=== PATIENT | female | born 1930 | race Caucasian/White ===

== ENCOUNTER 2016-11-10 20:20 | Inpatient (IN) | payer MEDICARE, MEDICAID ==
[~2016-11-10] VITALS: Ht 165.1 cm; Wt 86.2 kg
[~2016-11-10 20:20] MED LIST: ALBU8.5H2 INH; AMLO5TAB4 PO; ASPI-991 PO; AZIT250T PO; VIT1TABL83 PO; ZOLP5TAB2 PO
--- NOTE | 2016-11-10 20:40 | NUR ---
pt bib self c/o diarrhea with hemorrhoids and generalized body aches today. reports fever but afebrile now. resp even unlabored. skin warm nondiaphoretic. ambulatory with slow but steady gait. NAD noted. denies blood in stool. in er bed 12.
[2016-11-10 20:58] LABS: BASOPHILS % (AUTO) 0.2 % (0.0-2.0); EOSINOPHILS # (AUTO) 0.1 /CMM (0.0-0.7); EOSINOPHILS % (AUTO) 1.5 % (0.0-6.0); HEMATOCRIT 35 % (33-45); LYMPHOCYTES # (AUTO) 2.3 /CMM (0.8-4.8); LYMPHOCYTES % (AUTO) 24.5 % (20.0-44.0); MEAN CORPUSCULAR HEMOGLOBIN 20 PG (26.0-33.0); MEAN CORPUSCULAR HGB CONC 31 g/dl (31.0-36.0); MEAN CORPUSCULAR VOLUME 64 fL (82-100); MONOCYTES # (AUTO) 0.7 /CMM (0.1-1.30); NEUTROPHILS # (AUTO) 6.2 /CMM (1.8-8.9); NEUTROPHILS % (AUTO) 66.8 % (43.0-81.0); PLATELET COUNT (AUTO) 156 /CMM (150-450); RDW COEFFICIENT OF VARIATION 15.1 (11.5-15.0); RED BLOOD CELL COUNT(AUTO) 5.43 MIL/uL (4.0-5.2); WHITE BLOOD COUNT (AUTO) 9.3 K/uL (4.3-11.0)
--- NOTE | 2016-11-10 20:59 | NUR ---
PT REPORTS SHE WENT TO THE BATHROOM 5-10 MINUTES PRIOR TO TRIAGE AND HAS NO URGE TO PEE NOW. STATES "MAYBE LATER". NOTIFIED.
[2016-11-10 21:08] LABS: CALCIUM, SERUM 9.1 mg/dL (8.5-10.1); CREATININE 1.1 mg/dL (0.6-1.3); POTASSIUM 4.7 mmol/L (3.5-5.1)
[2016-11-10 21:14] LABS: ALBUMIN 3.7 g/dL (3.4-5.0); BILIRUBIN,DIRECT 0.1 mg/dL (0.0-0.2); BILIRUBIN,TOTAL 0.4 mg/dL (0.2-1.0)
[2016-11-10] MEDS ORDERED: IV NS 0.9% 1,000 ML BAG IV ONE (22:00)
[2016-11-10] MEDS ORDERED: PIPERACILLIN /TAZOBACTAM 3.375 G in IV D5W 50 ML IV ONE (22:00)
[2016-11-10] MEDS ORDERED: IV NS 0.9% 1,000 ML ONE (22:13)
[2016-11-10] MEDS ORDERED: PIPERACILLIN /TAZOBACTAM 3.375 G VIAL IV ONE (22:13)
[2016-11-10] MEDS ORDERED: IV SET PRIMARY 1 EA INFUS.SET MC ONE (22:13)
[2016-11-10] MEDS ORDERED: IV SET PRIMARY PUMP SET 1 EA INFUS.SET MC ONE (22:13)
--- NOTE | 2016-11-10 22:14 | NUR ---
report given to anila sharma for admission
--- NOTE | 2016-11-10 22:20 | NUR ---
pt ambulated to restroom with steady gait. provided urine sample.
--- NOTE | 2016-11-10 22:36 | NUR ---
ADMITTING CERTIFIED GREEN BUILDING ENGINEER AT BEDSIDE
[2016-11-10 22:47] LABS: APPEARANCE,URINE CLEAR (CLEAR); BILIRUBIN,URINE NEGATIVE (NEGATIVE); BLOOD, URINE NEGATIVE Ery/uL (NEGATIVE); COLOR,URINE YELLOW (YELLOW); KETONES,URINE NEGATIVE (NEGATIVE); LEUKOCYTE ESTERASE ,URINE NEGATIVE (NEGATIVE); NITRITE, URINE NEGATIVE (NEGATIVE); PROTEIN,URINE NEGATIVE (NEGATIVE); UGLUCOSE NEGATIVE (NEGATIVE); UROBILINOGEN,URINE 0.2 EU/dL (0.2)
[2016-11-10] MEDS ORDERED: METRONIDAZOLE 500MG/ NS 100ML 500 MG in PREMIX 1 EA IV SCH (23:00)
[2016-11-10] MEDS ORDERED: ONDANSETRON HCL/PF 4 MG/2 ML VIAL IVP PRN (23:00)
[2016-11-10] MEDS ORDERED: Z GUARD REMEDY 2 OZ OINT TP PRN (23:00)
[2016-11-10] MEDS ORDERED: MORPHINE SULFATE INJ 2 MG/ML DISP.SYRIN IV PRN (23:00)
[2016-11-10] MEDS ORDERED: ZOLPIDEM TARTRATE 5 MG TABLET PO PRN (23:00)
[2016-11-10] MEDS ORDERED: ACETAMINOPHEN 325 MG TABLET PO PRN (23:00)
[2016-11-10] MEDS ORDERED: CEFOTAXIME SODIUM 1 G in IV D5W 50 ML IV SCH (23:00)
--- NOTE | 2016-11-10 23:06 | NUR ---
PT TRANSPORTED TO [facility] IN STABLE CONDITION
--- NOTE | 2016-11-10 23:15 | NUR ---
RN OPEN NOTES RECEIVED PATIENT VIA GURNEY FROM ER. NO SIGNS OR SYMPTOMS OF DISTRESS OR DISCOMFORT. BREATHING EVEN AND UNLABORED. IV ACCESS IN LAC WITH NS INFUSING VIA GRAVITY, PATENT AND INTACT, NO SIGNS OF REDNESS OR INFILTRATION. PATIENT COMPLAIN OF ABD PAIN 5/10 BUT DENIES ANY PAIN MEDS AT THIS TIME. ORIENTED PATIENT TO UNIT AND ROOM. BED IN LOW LOCKED POSITION WITH SIDE RAILS X2. CALL LIGHT WITHIN REACH. WILL CONTINUE TO MONITOR.
[2016-11-10 23:20] VITALS: BP 144/80
[2016-11-10 23:56] LABS: IRON, SERUM 29 ug/dl (50-175); TOTAL IRON BINDING CAPACITY 324 ug/dl (250-450)
[2016-11-10] MEDS ORDERED: METRONIDAZOLE 500MG/ NS 100ML 100 ML IV ONE (23:59)
[2016-11-11] VITALS: BP 144/80
[2016-11-11] MEDS ORDERED: IV D5/0.45 NACL 1,000 ML IV ONE (00:37)
[2016-11-11] MEDS ORDERED: IV SET PRIMARY PUMP SET 1 EA INFUS.SET MC ONE (00:38)
[2016-11-11] MEDS ORDERED: SECONDARY IV SET 1 EA INFUS.SET MC ONE ×2 (00:39→02:07)
[2016-11-11] MEDS: IV D5/0.45 NACL 1,000 ML IV PRN ×2 (00:44→23:18)
[2016-11-11] MEDS ORDERED: CEFTRIAXONE 1 G VIAL ONE (01:32)
[2016-11-11] MEDS ORDERED: IV D5W 50 ML IV ONE (01:33)
[2016-11-11] MEDS: CEFTRIAXONE 1 G in IV D5W 50 ML IV SCH (02:31)
--- NOTE | 2016-11-11 07:11 | NUR ---
MS/RN OPENING NOTES RECEIVED PATIENT AWAKE IN BED IN NO ACUTE SIGNS OF DISTRESS. ALERT AND ORIENTED X4, DENIES ANY PAIN OR ANY DISCOMFORTS AT THIS TIME. ON ROOM AIR, NO SOB OBSERVED. IV ACCESS TO LEFT AC PATENT AND INTACT WITH IVF OF D5 1/2 NS INFUSING , NO SIGNS OF INFILTRATION NOTED. CALL LIGHT WITHIN EASY REACH. BED LOW AND LOCKED WITH FOR SAFETY. WILL CONTINUE TO MONITOR ACCORDINGLY.
[2016-11-11] MEDS ORDERED: METRONIDAZOLE 500MG/ NS 100ML 500 MG in PREMIX 1 EA IV SCH (07:21)
--- NOTE | 2016-11-11 07:26 | NUR ---
RN CLOSING NOTES PATIENT AWAKE SITING ON BED. A/O X4. NO SIGNS OR SYMPTOMS OF DISTRESS OR DISCOMFORT. BREATHING EVEN AND UNLABORED. IV ACCESS IN LAC WITH D5 1/2NS INFUSING, PATENT AND INTACT, NO SIGNS OF REDNESS OR INFILTRATION. PAIN IS TOLERABLE AT THIS TIME. ALL NEEDS MET. NO SIGNIFICANT CHANGES THROUGH THE NIGHT. BED IN LOW LOCKED POSITION WITH SIDE RAILS X2. CALL LIGHT WITHIN REACH. ENDORSED TO AM SHIFT FOR ERIK.
[2016-11-11] MEDS ORDERED: ALBUTEROL FS 2.5 MG/0.5 ML VIAL.NEB NEB PRN (07:35)
[2016-11-11 08:00] VITALS: BP 138/72
[2016-11-11] MEDS: ASPIRIN EC 81 MG TABLET.DR PO SCH (08:06)
[2016-11-11] MEDS: AMLODIPINE BESYLATE 5 MG TABLET PO SCH (08:06)
[2016-11-11] MEDS: METRONIDAZOLE 500MG/ NS 100ML 500 MG in PREMIX 1 EA IV SCH ×3 (09:11→21:10)
[2016-11-11 10:20] LABS: BASOPHILS % (AUTO) 0.1 % (0.0-2.0); EOSINOPHILS # (AUTO) 0.1 /CMM (0.0-0.7); EOSINOPHILS % (AUTO) 1.9 % (0.0-6.0); HEMATOCRIT 33 % (33-45); HEMOGLOBIN 10.4 g/dL (11.5-14.8); LYMPHOCYTES # (AUTO) 1.9 /CMM (0.8-4.8); LYMPHOCYTES % (AUTO) 25.1 % (20.0-44.0); MEAN CORPUSCULAR HEMOGLOBIN 20 PG (26.0-33.0); MEAN CORPUSCULAR HGB CONC 32 g/dl (31.0-36.0); MEAN CORPUSCULAR VOLUME 65 fL (82-100); MONOCYTES # (AUTO) 0.6 /CMM (0.1-1.30); MONOCYTES % (AUTO) 7.6 % (2.0-12.0); NEUTROPHILS # (AUTO) 4.8 /CMM (1.8-8.9); NEUTROPHILS % (AUTO) 65.3 % (43.0-81.0); PLATELET COUNT (AUTO) 157 /CMM (150-450); RDW COEFFICIENT OF VARIATION 15.7 (11.5-15.0); RED BLOOD CELL COUNT(AUTO) 5.11 MIL/uL (4.0-5.2); WHITE BLOOD COUNT (AUTO) 7.4 K/uL (4.3-11.0)
[2016-11-11 10:43] LABS: ANISOCYTOSIS 3+; BAND % (MANUAL) 2 % (0.0-5.0); EOSINOPHILS % (MANUAL) 1 % (0-4); LYMPHOCYTES % (MANUAL) 26 % (16-48); MONOCYTES % (MANUAL) 5 % (0-11.0); NEUTROPHILS % (MANUAL) 66 (42-76); PLATELET ESTIMATE DECREASED; THYROID STIMULATING HORMONE 5.234 uIU/mL (0.358-3.74)
[2016-11-11 10:44] LABS: ALBUMIN 3.3 g/dL (3.4-5.0); BILIRUBIN,TOTAL 0.5 mg/dL (0.2-1.0); CALCIUM, SERUM 8.4 mg/dL (8.5-10.1); CREATININE 0.9 mg/dL (0.6-1.3); HYPOCHROMASIA 2+; OVALOCYTES FEW; PHOSPHORUS 3.6 mg/dL (2.5-4.9); TEAR DROP CELLS OCC; TOTAL PROTEIN, SERUM 6.6 g/dL (6.4-8.2)
[2016-11-11] MEDS: POLYVINYL ALCOHOL 15 ML BOTTLE EACHEYE PRN (13:03)
--- NOTE | 2016-11-11 13:05 | NUR ---
RN NOTES REPORTED TO DR SHAIKH ALL ABNORMAL BLOOD RESULTS. HE SAID , HE WILL TAKE A LOOK. NO NEW ORDER AT THIS TIME.
[2016-11-11 16:00] VITALS: BP 123/76
--- NOTE | 2016-11-11 18:57 | NUR ---
MS RN CLOSING NOTES PATIENT IN BED NO ACUTE SIGNS OF DISTRESS. ALERT AND ORIENTED X 4, NO SIGNS OF DISTRESS AND NO C/O PAIN AT THIS TIME. ALL NEEDS AND CARE WELL PROVIDED. IV ACCESS INTACT AND PATENT WITH D5 1/2 NS INFUSING WELL, NO SIGNS OF INFILTRATION NOTED. ALL DUE MEDS GIVEN ORDERED. CALL LIGHT WITHIN REACH AND KEPT BED AND LOW. SAFETY MEASURES MAINTAINED. WILL ENDORSE TO POWER SYSTEMS ENGINEER RN FOR CONTINUITY OF CARE
--- NOTE | 2016-11-11 19:20 | NUR ---
MS/RN OPENING NOTES PT AWAKE, DAUGHTER AT BEDSIDE. ON ROOM AIR, NO SOB OR S/S OF DISTRESS NOTED. BREATHING EVEN AND UNLABORED. DENIES PAIN. IV TO LAC PATENT AND INTACT RUNNING IVF ORDERED. BED IN LOW/LOCKED POSITION WITH CALL LIGHT IN REACH. BED RAILS UPX2. ENCOURAGE PT NOT TO GET OUT OF BED WITHOUT ASSISTANCE. PT VERBALIZED UNDERSTANDING. WILL CONTINUE TO MONITOR
[2016-11-11 20:00] VITALS: BP 149/96
[2016-11-11 20:09] VITALS: BP 149/96
[2016-11-11 22:29] VITALS: BP 143/73
--- NOTE | 2016-11-11 23:09 | NUR ---
MS/RN NOTES PT INFORMED AT 2100 THAT I WILL BE RETURNING IN ABOUT AN HOUR TO ADMINISTER HER SCHEDULED SLEEPING PILL. PT VERBALIZED UNDERSTANDING. PULLED MEDICATION FROM [employer] AND ENTERED PT'S ROOM AT 2200 TO ADMINISTER BUT PT STATED SHE WANTED TO WAIT A WHILE TO SEE IF SHE NEEDED IT OR NOT. INFORMED HER THAT I WOULD COME BACK TO SEE IF SHE WOULD LIKE IT. PT STILL WANTS TO WAIT AND SEE IF SHE EVEN NEEDS TO TAKE THE AMBIEN. WILL HOLD ONTO MEDICATION FOR NOW AND RETURN TO MED BIN IF PT DECIDES SHE DOESNT WANT IT
[2016-11-11] MEDS: ZOLPIDEM TARTRATE 5 MG TABLET PO SCH (23:20)
--- NOTE | 2016-11-11 23:20 | NUR ---
MS/RN NOTES PT STATED THAT SHE WAS READY TO TAKE HER SCHEDULED AMBIEN AND ADMINISTERED. WILL MONITOR FOR EFFECTIVENESS.
[2016-11-12] MEDS: CEFTRIAXONE 1 G in IV D5W 50 ML IV SCH (02:02)
--- NOTE | 2016-11-12 02:30 | NUR ---
MS/RN NOTES IV TO LAC DISLODGED AND LEAKING. NEW IV STARTED TO LEFT HAND #22. IVF RESTARTED.
--- NOTE | 2016-11-12 04:19 | NUR ---
MS/RN NOTES PT SLEEPING, BREATHING EVEN AND UNLABORED. NO S/S OF DISTRESS NOTED. WILL CONTINUE TO MONITOR
[2016-11-12] MEDS: METRONIDAZOLE 500MG/ NS 100ML 500 MG in PREMIX 1 EA IV SCH ×3 (04:51→21:44)
--- NOTE | 2016-11-12 06:53 | NUR ---
MS/RN CLOSING NOTES PT AWAKE, A/OX4. ON ROOM AIR. NO SOB OR DISTRESS NOTED. BREATHING EVEN AND UNLABORED. DENIES PAIN. IV TO LEFT HAND PATENT AND INTACT RUNNING IVF ORDERED. NO S/S OF INFILTRATION NOTED. ASSISTED PT TO RESTROOM THROUGHOUT SHIFT. MADE PT COMFORTABLE THROUGHOUT SHIFT. NO CHANGES NOTED OVERNIGHT. ALL NEEDS MET AND ATTENDED TO AT THIS TIME. BED IN LOW/LOCKED POSITION WITH CALL LIGHT IN REACH. WILL ENDORSE TO AM SHIFT ERIK.
--- NOTE | 2016-11-12 07:31 | NUR ---
MS RN NOTES REPORT RECEIVED AT THE BEDSIDE. PATIENT IS SLEEPING. NO SOB OR DISTRESS NOTED AT THIS TIME. PATIENT DOES NOT APPEAR TO BE IN PAIN, NO FACIAL GRIMACE NOTED. BED IS IN THE LOWEST POSITION, CALL LIGHT WITHIN PATIENT REACH. WILL CONTINUE TO MONITOR.
[2016-11-12 08:00] VITALS: BP 134/69
[2016-11-12] MEDS: AMLODIPINE BESYLATE 5 MG TABLET PO SCH (09:18)
[2016-11-12] MEDS: ASPIRIN EC 81 MG TABLET.DR PO SCH (09:18)
[2016-11-12] MEDS: POLYVINYL ALCOHOL 15 ML BOTTLE EACHEYE PRN (09:19)
--- NOTE | 2016-11-12 09:30 | NUR ---
MS RN NOTES FOUND PATIENT IN ROOM JAMES SEARCHING THE BED LINENS. PATIENT STATES THAT HER CELL PHONE IS MISSING. SEARCHED THE LINENS WITH THE PATIENT, SEARCHED THE DIRTY LINENS AND TRASH, PATIENT'S BREAKFAST TRAY, AND CALLED THE PATIENT'S PHONE MULTIPLE TIMES. THE PHONE WAS NOT FOUND IN THE ROOM. PATIENT STATES THE LAST TIME SHE REMEMBERS USING THE PHONE WAS LAST NIGHT BEFORE BED. CHECKED THE BELONGINGS LIST, CELL PHONE IS NOT LISTED. THERE IS A CELL PHONE COVER AND A INJECTION MOLDING PROCESS TECHNICIAN PLUGGED IN AT PATIENT'S BEDSIDE. INFORMED EMBROIDERY PATTERNMAKER WHO CALLED [employer] TO SEE IF ANYTHING WAS FOUND FROM LAST NIGHT. EVS STATES NOTHING WAS FOUND AND THE NIGHT DIRTY LINENS ARE ALREADY SENT OUT. WHEN ASKED WHAT KIND OF PHONE THE PATIENT HAS, SHE REPLIES A "BOOST MOBILE PHONE."
[2016-11-12 16:00] VITALS: BP 130/67
--- NOTE | 2016-11-12 18:53 | NUR ---
MS RN CLOSING NOTE NO SIGNIFICANT CHANGES IN PATIENT CONDITION THROUGHOUT THE SHIFT. NO SOB OR DISTRESS NOTED AT THIS TIME. PATIENT DENIES PAIN. BED IN A LOW POSITION, CALL LIGHT WITHIN PATIENT REACH, WILL ENDORSE FOR ERKI. Addendum: 11/12/16 at 1854 by VANNESSA CHÁVEZ RN PATIENT CELL PHONE HAS STILL NOT BEEN FOUND. MADAY, INTERNATIONAL RECRUITER, WAS INFORMED OF MISSING PHONE.
--- NOTE | 2016-11-12 19:40 | NUR ---
MS/RN OPENING NOTES PT ASLEEP, EASILY AROUSABLE. BREATHING EVEN AND UNLABORED. ON ROOM AIR WITH NO DISTRESS NOTED. NO S/S OF PAIN. IV TO LEFT HAND PATENT AND INTACT, FLUSHES WELL. BED IN LOW/LOCKED POSITION, CALL LIGHT IN REACH. BED RAILS UPX2. WILL CONTINUE TO MONITOR
[2016-11-12 20:00] VITALS: BP 149/74
[2016-11-13] MEDS: ZOLPIDEM TARTRATE 5 MG TABLET PO SCH (00:31)
--- NOTE | 2016-11-13 00:42 | NUR ---
MS/RN NOTES PT DID NOT WANT TO TAKE THE SCHEDULED AMBIEN AT 2200. WANTED TO WAIT UNTIL LATER. PT SAID SHE WAS READY FOR THE SLEEPING PILL, AND ADMINISTERED. WILL MONITOR FOR EFFECTIVENESS
[2016-11-13] MEDS: CEFTRIAXONE 1 G in IV D5W 50 ML IV SCH (02:37)
[2016-11-13] MEDS: METRONIDAZOLE 500MG/ NS 100ML 500 MG in PREMIX 1 EA IV SCH (05:33)
--- NOTE | 2016-11-13 07:00 | NUR ---
MS/RN CLOSING NOTES PT AWAKE. ON ROOM AIR WITH NO DISTRESS NOTED. NO S/S OF PAIN. IV TO LEFT HAND PATENT AND INTACT, FLUSHES WELL. SLEPT WELL THROUGHOUT THE NIGHT. WARM BLANKETS PROVIDED, MADE PT COMFORTABLE THROUGHOUT THE SHIFT, ALL NEEDS MET AND ATTENDED TO. BED IN LOW/LOCKED POSITION, CALL LIGHT IN REACH. BED RAILS UPX2. NO CHANGES OVERNIGHT. WILL ENDORSE TO AM SHIFT ERIK.
--- NOTE | 2016-11-13 08:15 | NUR ---
MS RN OPENING NOTES RECEIVED PT FROM NIGHTSHIFT NURSE IN STABLE CONDITION. A/O X4. BREATHING EVEN AND UNLABORED. NO SOB OR SIGNS OF DISTRESS AT THIS TIME. IV TO LEFT HAND 22G PATENT AND INTACT. NO REDNESS OR INFILTRATION NOTED. BED IN LOW LOCKED POSITION, SIDE RAILS UP X2, WITH CALL LIGHT IN REACH. WILL CONTINUE TO MONITOR
[2016-11-13 09:07] VITALS: BP 141/67
[2016-11-13 09:25] VITALS: BP 141/67
[2016-11-13] MEDS: ASPIRIN EC 81 MG TABLET.DR PO SCH (09:25)
[2016-11-13] MEDS: AMLODIPINE BESYLATE 5 MG TABLET PO SCH (09:25)
[2016-11-13] MEDS: POLYVINYL ALCOHOL 15 ML BOTTLE EACHEYE PRN (09:39)
--- NOTE | 2016-11-13 15:05 | NUR ---
MS RN CLOSING NOTES PT LEFT UNIT IN STABLE CONDITION ACCOMPANIED BY HER DAUGHTER AND MANSI. SHE SAFELY LEFT THE HOSPITAL IN A PRIVATE CAR. ALL ORDERS AND PT NEEDS WERE CARRIED OUT THROUGHOUT SHIFT
== END 2016-11-13 15:00 | disposition home or self-care (01) | DRG 392 ==
LOC: ER 20:24 → MED 21:51
PROVIDERS: ADMIT Nurse Practitioner Acute Care; ATTEND Nurse Practitioner Acute Care
DX: K57.32 Diverticulitis of large intestine without perforation or abscess without bleeding (principal); E87.1 Hypo-osmolality and hyponatremia; D50.9 Iron deficiency anemia, unspecified; F32.9 Major depressive disorder, single episode, unspecified; I10 Essential (primary) hypertension; K21.9 Gastro-esophageal reflux disease without esophagitis; M06.9 Rheumatoid arthritis, unspecified; G89.29 Other chronic pain; M54.5 Low back pain; Z90.710 Acquired absence of both cervix and uterus; K62.89 Other specified diseases of anus and rectum; K64.9 Unspecified hemorrhoids
CPT/HCPCS: 36415; 80048-TC; 80053-TC; 80061-TC; 80076-TC; 81000-TC; 83540-TC; 83605-TC; 83690-TC; 83735-TC; 84100-TC; 84443-TC; 85025-TC; 87040-TC; 87081-TC; A4216; A4606; J0696; J0698; J2270; J2543; J3490; J7030; J7060; Z7610

== ENCOUNTER 2018-10-27 14:53 | Emergency (ER) | payer MEDICARE, MEDICAID ==
[~2018-10-27] VITALS: Ht 165.1 cm; Wt 83.0 kg
[~2018-10-27 14:53] MED LIST changes: -ALBU8.5H2 INH; +ALBU8.5H8 INH; +ASPI-1152 PO; -ASPI-991 PO; -AZIT250T PO
--- NOTE | 2018-10-27 15:03 | NUR ---
PT TO ED BED 04 C/O LOWER ABDOMINAL PAIN X 2 DAYS. DENIES N/V/D. WAS AT HER PRIMARY DOCTOR AND WAS ADVISED TO GO TO ED. HX OF DIVERTICULIS, SURGERY 5-6 YEARS AGO. AFEBRILE. VSS. AWAITING MD OLIVARES.
--- NOTE | 2018-10-27 15:17 | NUR ---
DR HUMPHREYS AT BEDSIDE FOR EVAL.
--- NOTE | 2018-10-27 15:28 | NUR ---
IV LINE STARTED BLOOD DRAWN AND SENT TO LAB.
[2018-10-27] MEDS ORDERED: IV NS 0.9% 500 ML BAG IV ONE (15:30)
[2018-10-27 15:31] LABS: BASOPHILS % (AUTO) 0.6 % (0.0-2.0); HEMATOCRIT 35 % (33-45); LYMPHOCYTES # (AUTO) 2.4 /CMM (0.8-4.8); LYMPHOCYTES % (AUTO) 27.7 % (20.0-44.0); MEAN CORPUSCULAR HGB CONC 32 g/dl (31.0-36.0); MEAN CORPUSCULAR VOLUME 64 fL (82-100); MONOCYTES # (AUTO) 0.5 /CMM (0.1-1.30); MONOCYTES % (AUTO) 6.3 % (2.0-12.0); NEUTROPHILS # (AUTO) 5.5 /CMM (1.8-8.9); NEUTROPHILS % (AUTO) 63.4 % (43.0-81.0); PLATELET COUNT (AUTO) 187 /CMM (150-450); RED BLOOD CELL COUNT(AUTO) 5.44 MIL/uL (4.0-5.2); WHITE BLOOD COUNT (AUTO) 8.6 K/uL (4.3-11.0)
[2018-10-27 15:39] LABS: CALCIUM, SERUM 9.2 mg/dL (8.5-10.1); CARBON DIOXIDE 27 mmol/L (21-32); CHLORIDE 103 mmol/L (98-107); GLUCOSE 129 mg/dL (74-106); POTASSIUM 4.2 mmol/L (3.5-5.1); SODIUM SERUM 139 mmol/L (136-145); UREA NITROGEN, BLOOD 16 mg/dL (7-18)
[2018-10-27 15:45] LABS: ALANINE AMINOTRANSFERASE 21 U/L (12-78); ALBUMIN 3.9 g/dL (3.4-5.0); ALKALINE PHOSPHATASE 76 U/L (46-116); ASPARTATE AMINOTRANSFERASE 17 U/L (15-37); BILIRUBIN,DIRECT 0.1 mg/dL (0.0-0.2); BILIRUBIN,TOTAL 0.4 mg/dL (0.2-1.0); LIPASE 116 U/L (73-393); TOTAL PROTEIN, SERUM 7.2 g/dL (6.4-8.2)
[2018-10-27 16:18] LABS: APPEARANCE,URINE Clear (CLEAR); BILIRUBIN,URINE Negative (NEGATIVE); BLOOD, URINE Negative Ery/uL (NEGATIVE); COLOR,URINE Yellow (YELLOW); KETONES,URINE Negative (NEGATIVE); LEUKOCYTE ESTERASE ,URINE Negative (NEGATIVE); NITRITE, URINE Negative (NEGATIVE); PH,URINE 5.5 (5.0-8.0); PROTEIN,URINE Negative (NEGATIVE); UGLUCOSE Negative (NEGATIVE); UROBILINOGEN,URINE 0.2 EU/dL (0.2)
[2018-10-27] MEDS ORDERED: PIPERACILLIN /TAZOBACTAM 3.375 G in IV D5W 50 ML IV ONE (16:30)
[2018-10-27 17:53] LABS: BAND % (MANUAL) 17 % (0.0-5.0); EOSINOPHILS % (MANUAL) 3 % (0-4); LYMPHOCYTES % (MANUAL) 25 % (16-48); MONOCYTES % (MANUAL) 8 % (0-11.0); NEUTROPHILS % (MANUAL) 47 (42-76)
[2018-10-27 18:51] VITALS: BP 135/81
--- NOTE | 2018-10-27 18:52 | NUR ---
Patient discharged to home in stable condition. Written and verbal after care instructions given. Patient verbalizes understanding of instruction.
== END 2018-10-27 18:52 | disposition home or self-care (01) ==
LOC: ER 14:57
DX: K57.92 Diverticulitis of intestine, part unspecified, without perforation or abscess without bleeding (principal); I10 Essential (primary) hypertension; M06.9 Rheumatoid arthritis, unspecified; Z90.710 Acquired absence of both cervix and uterus; Z90.89 Acquired absence of other organs; Z98.890 Other specified postprocedural states; Z60.2 Problems related to living alone; Z79.82 Long term (current) use of aspirin; Z79.899 Other long term (current) drug therapy
CPT/HCPCS: 36415; 71045; 74176; 80048; 80076; 81001; 83690; 85025; 96365; 99284; J2543; J7040; J7060; 81000-TC

== ENCOUNTER 2018-12-20 19:16 | Emergency (ER) | payer MEDICARE, MEDICAID ==
[~2018-12-20] VITALS: Ht 152.4 cm; Wt 82.6 kg
--- NOTE | 2018-12-20 19:32 | NUR ---
PT BIBSELF C/O LOWER ABDOMINAL PAIN X4 HR. +NAUSEA, -V/D, -DYSURIA, -FEVER, PT IS AAOX4, NOT IN RESPIRATORY DISTRESS, V/S STABLE, KEPT RESTED AND COMFORTABLE, WILL CONTINUE TO MONITOR.
--- NOTE | 2018-12-20 19:35 | NUR ---
SEEN AND EXAMINED BY .
--- NOTE | 2018-12-20 19:40 | NUR ---
URINAL GIVEN BUT UNABLE TO PROVIDE URINE SPECEIMEN THIS TIME.
--- NOTE | 2018-12-20 20:03 | NUR ---
URINE SPECIMEN COLLECTED AND SENT TO LAB.
--- NOTE | 2018-12-20 20:20 | NUR ---
IV LINE ESTABLISHED, LABS DRAWNED AND SENT TO LAB.
[2018-12-20] MEDS ORDERED: MORPHINE SULFATE INJ 2 MG/ML DISP.SYRIN ONE (20:27)
[2018-12-20] MEDS ORDERED: ONDANSETRON HCL/PF 4 MG/2 ML VIAL ONE (20:27)
[2018-12-20] MEDS ORDERED: ONDANSETRON HCL/PF 4 MG/2 ML VIAL IV ONE (20:30)
[2018-12-20] MEDS ORDERED: MORPHINE SULFATE INJ 2 MG/ML DISP.SYRIN IV ONE (20:30)
[2018-12-20 20:36] LABS: BASOPHILS % (AUTO) 0.5 % (0.0-2.0); EOSINOPHILS % (AUTO) 2.9 % (0.0-6.0); HEMATOCRIT 34 % (33-45); HEMOGLOBIN 10.8 g/dL (11.5-14.8); LYMPHOCYTES # (AUTO) 2.4 /CMM (0.8-4.8); LYMPHOCYTES % (AUTO) 37.4 % (20.0-44.0); MEAN CORPUSCULAR HGB CONC 32 g/dl (31.0-36.0); MEAN CORPUSCULAR VOLUME 64 fL (82-100); MONOCYTES # (AUTO) 0.4 /CMM (0.1-1.30); MONOCYTES % (AUTO) 6.6 % (2.0-12.0); NEUTROPHILS # (AUTO) 3.3 /CMM (1.8-8.9); NEUTROPHILS % (AUTO) 52.6 % (43.0-81.0); PLATELET COUNT (AUTO) 181 /CMM (150-450); RED BLOOD CELL COUNT(AUTO) 5.35 MIL/uL (4.0-5.2); WHITE BLOOD COUNT (AUTO) 6.4 K/uL (4.3-11.0)
[2018-12-20 20:44] LABS: CALCIUM, SERUM 9.1 mg/dL (8.5-10.1); CARBON DIOXIDE 24 mmol/L (21-32); CHLORIDE 103 mmol/L (98-107); GLUCOSE 101 mg/dL (74-106); POTASSIUM 4.4 mmol/L (3.5-5.1); SODIUM SERUM 138 mmol/L (136-145); UREA NITROGEN, BLOOD 18 mg/dL (7-18)
[2018-12-20 20:58] LABS: ALANINE AMINOTRANSFERASE 21 U/L (12-78); ALBUMIN 3.8 g/dL (3.4-5.0); ALKALINE PHOSPHATASE 67 U/L (46-116); ASPARTATE AMINOTRANSFERASE 16 U/L (15-37); BILIRUBIN,DIRECT 0.1 mg/dL (0.0-0.2); BILIRUBIN,TOTAL 0.4 mg/dL (0.2-1.0); LIPASE 139 U/L (73-393); TOTAL PROTEIN, SERUM 7.1 g/dL (6.4-8.2)
[2018-12-20 21:39] LABS: APPEARANCE,URINE Turbid (CLEAR); BILIRUBIN,URINE Negative (NEGATIVE); BLOOD, URINE Trace-intact Ery/uL (NEGATIVE); COLOR,URINE Yellow (YELLOW); KETONES,URINE Negative (NEGATIVE); LEUKOCYTE ESTERASE ,URINE Moderate (NEGATIVE); NITRITE, URINE Positive (NEGATIVE); PH,URINE 5.5 (5.0-8.0); PROTEIN,URINE Negative (NEGATIVE); UGLUCOSE Negative (NEGATIVE); UROBILINOGEN,URINE 0.2 EU/dL (0.2)
[2018-12-20 21:49] LABS: BACTERIA,URINE Many /HPF (None Seen); RBC,URINE 0-2 /HPF (0-2); SQUAMOUS EPITHELIAL CELL,UR Few /HPF (None Seen); WBC,URINE TOO NUMEROUS TO COUN /HPF (0-3)
[2018-12-20] MEDS ORDERED: CEFTRIAXONE 1 G in IV D5W 50 ML IV ONE (22:00)
[2018-12-20] MEDS ORDERED: CEFTRIAXONE 1GM BAG (ER ONLY) 50 ML IV ONE (22:02)
--- NOTE | 2018-12-20 22:34 | NUR ---
IV removed. Catheter intact and site benign. Pressure and 4x4 applied to site. No bleeding noted. Patient discharged to home in stable condition. Written and verbal after care instructions given. Patient verbalizes understanding of instruction.
[2018-12-20 22:35] VITALS: BP 138/76
== END 2018-12-20 22:37 | disposition home or self-care (01) ==
LOC: ER 19:20
DX: N39.0 Urinary tract infection, site not specified (principal); I10 Essential (primary) hypertension; Z90.49 Acquired absence of other specified parts of digestive tract; Z90.710 Acquired absence of both cervix and uterus; Z90.89 Acquired absence of other organs; Z60.2 Problems related to living alone; Z79.82 Long term (current) use of aspirin
CPT/HCPCS: 36415; 74176; 80048; 80076; 81001; 83690; 84484; 85025; 87086; 96365; 96375; 99284; J0696 ×2; J2270; J2405; J7060; 81000-TC; 87186-TC

== ENCOUNTER 2018-12-25 00:38 | Emergency (ER) | payer MEDICARE, MEDICAID ==
[~2018-12-25] VITALS: Ht 165.1 cm; Wt 82.6 kg
[2018-12-25 01:16] VITALS: BP 153/76
--- NOTE | 2018-12-25 01:44 | NUR ---
C/O "WAS SEEN HERE A FEW DAYS AGO, PRESCRIBED KEFLEX. HAVING ABD PAIN AND DIARRHEA" VSS AOX4. AMBULATORY. -SOB -ACUTE DISTRESS.
[2018-12-25 02:16] LABS: APPEARANCE,URINE Clear (CLEAR); BILIRUBIN,URINE Negative (NEGATIVE); BLOOD, URINE Negative Ery/uL (NEGATIVE); COLOR,URINE Yellow (YELLOW); KETONES,URINE Negative (NEGATIVE); LEUKOCYTE ESTERASE ,URINE Negative (NEGATIVE); NITRITE, URINE Negative (NEGATIVE); PH,URINE 5.5 (5.0-8.0); PROTEIN,URINE Negative (NEGATIVE); UGLUCOSE Negative (NEGATIVE); UROBILINOGEN,URINE 0.2 EU/dL (0.2)
[2018-12-25 02:17] LABS: CALCIUM, SERUM 9.2 mg/dL (8.5-10.1); CARBON DIOXIDE 26 mmol/L (21-32); CHLORIDE 97 mmol/L (98-107); CREATININE 0.9 mg/dL (0.6-1.3); GLUCOSE 100 mg/dL (74-106); POTASSIUM 4.1 mmol/L (3.5-5.1); SODIUM SERUM 132 mmol/L (136-145); UREA NITROGEN, BLOOD 15 mg/dL (7-18)
[2018-12-25 02:20] LABS: BASOPHILS % (AUTO) 0.4 % (0.0-2.0); EOSINOPHILS % (AUTO) 3.2 % (0.0-6.0); HEMATOCRIT 34 % (33-45); HEMOGLOBIN 10.7 g/dL (11.5-14.8); LYMPHOCYTES # (AUTO) 3.1 /CMM (0.8-4.8); LYMPHOCYTES % (AUTO) 43.1 % (20.0-44.0); MEAN CORPUSCULAR HGB CONC 32 g/dl (31.0-36.0); MEAN CORPUSCULAR VOLUME 63 fL (82-100); MONOCYTES # (AUTO) 0.4 /CMM (0.1-1.30); MONOCYTES % (AUTO) 6.2 % (2.0-12.0); NEUTROPHILS # (AUTO) 3.4 /CMM (1.8-8.9); NEUTROPHILS % (AUTO) 47.1 % (43.0-81.0); PLATELET COUNT (AUTO) 190 /CMM (150-450); RED BLOOD CELL COUNT(AUTO) 5.28 MIL/uL (4.0-5.2); WHITE BLOOD COUNT (AUTO) 7.2 K/uL (4.3-11.0)
[2018-12-25 02:22] LABS: ALANINE AMINOTRANSFERASE 23 U/L (12-78); ALBUMIN 3.9 g/dL (3.4-5.0); ALKALINE PHOSPHATASE 65 U/L (46-116); ASPARTATE AMINOTRANSFERASE 16 U/L (15-37); BILIRUBIN,DIRECT 0.1 mg/dL (0.0-0.2); BILIRUBIN,TOTAL 0.4 mg/dL (0.2-1.0); LIPASE 146 U/L (73-393); TOTAL PROTEIN, SERUM 7.6 g/dL (6.4-8.2)
== END 2018-12-25 03:54 | disposition home or self-care (01) ==
LOC: ER 00:48
DX: R10.30 Lower abdominal pain, unspecified (principal); I10 Essential (primary) hypertension; Z90.89 Acquired absence of other organs; Z90.710 Acquired absence of both cervix and uterus; Z98.890 Other specified postprocedural states; Z60.2 Problems related to living alone; Z79.82 Long term (current) use of aspirin
CPT/HCPCS: 36415; 80048-TC; 80076-TC; 81000-TC; 83690-TC; 85025-TC; 87086-TC

== ENCOUNTER 2019-07-20 11:53 | Emergency (ER) | payer MEDICARE, OTHER ==
[~2019-07-20] VITALS: Ht 160 cm; Wt 81.6 kg
--- NOTE | 2019-07-20 12:55 | NUR ---
SEEN AND EXAMINED BY
--- NOTE | 2019-07-20 13:00 | NUR ---
ER PHLEB AT BEDSIDE FOR BLOOD DRAW.
[2019-07-20 13:14] LABS: BASOPHILS % (AUTO) 0.3 % (0.0-2.0); EOSINOPHILS % (AUTO) 2.9 % (0.0-6.0); HEMATOCRIT 36 % (33-45); HEMOGLOBIN 11.2 g/dL (11.5-14.8); LYMPHOCYTES # (AUTO) 2.3 /CMM (0.8-4.8); LYMPHOCYTES % (AUTO) 41.6 % (20.0-44.0); MEAN CORPUSCULAR HGB CONC 31 g/dl (31.0-36.0); MEAN CORPUSCULAR VOLUME 63 fL (82-100); MONOCYTES # (AUTO) 0.4 /CMM (0.1-1.30); MONOCYTES % (AUTO) 7.2 % (2.0-12.0); NEUTROPHILS # (AUTO) 2.7 /CMM (1.8-8.9); PLATELET COUNT (AUTO) 162 /CMM (150-450); RED BLOOD CELL COUNT(AUTO) 5.67 MIL/uL (4.0-5.2); WHITE BLOOD COUNT (AUTO) 5.5 K/uL (4.3-11.0)
--- NOTE | 2019-07-20 13:16 | NUR ---
URINE SPECIMEN COLLECTED AND SENT TO LAB.
[2019-07-20 13:17] LABS: CALCIUM, SERUM 9.3 mg/dL (8.5-10.1); CARBON DIOXIDE 28 mmol/L (21-32); CHLORIDE 95 mmol/L (98-107); CREATININE 0.9 mg/dL (0.6-1.3); GLUCOSE 82 mg/dL (74-106); POTASSIUM 4.6 mmol/L (3.5-5.1); SODIUM SERUM 130 mmol/L (136-145); UREA NITROGEN, BLOOD 18 mg/dL (7-18)
[2019-07-20 13:23] LABS: APPEARANCE,URINE Clear (CLEAR); BILIRUBIN,URINE Negative (NEGATIVE); BLOOD, URINE Negative Ery/uL (NEGATIVE); COLOR,URINE Yellow (YELLOW); KETONES,URINE Negative (NEGATIVE); LEUKOCYTE ESTERASE ,URINE Small (NEGATIVE); NITRITE, URINE Negative (NEGATIVE); PROTEIN,URINE Negative (NEGATIVE); UGLUCOSE Negative (NEGATIVE); UROBILINOGEN,URINE 0.2 EU/dL (0.2)
[2019-07-20 13:24] LABS: ALANINE AMINOTRANSFERASE 23 U/L (12-78); ALBUMIN 3.9 g/dL (3.4-5.0); ALKALINE PHOSPHATASE 57 U/L (46-116); ASPARTATE AMINOTRANSFERASE 16 U/L (15-37); BILIRUBIN,DIRECT 0.1 mg/dL (0.0-0.2); BILIRUBIN,TOTAL 0.5 mg/dL (0.2-1.0); LIPASE 103 U/L (73-393); TOTAL PROTEIN, SERUM 7.3 g/dL (6.4-8.2)
[2019-07-20 13:30] LABS: BACTERIA,URINE Few /HPF (None Seen); SQUAMOUS EPITHELIAL CELL,UR Moderate /HPF (None Seen)
[2019-07-20] MEDS ORDERED: ACETAMINOPHEN ES 500 MG TABLET ONE (14:00)
[2019-07-20] MEDS ORDERED: DICYCLOMINE HCL 10 MG CAPSULE PO ONE ×2 (14:00)
[2019-07-20] MEDS ORDERED: ACETAMINOPHEN ES 500 MG TABLET PO ONE (14:00)
[2019-07-20] MEDS ORDERED: CT SWABBABLE VALVE TRANS SET 1 EA INFUS.SET MC ONE (14:25)
[2019-07-20] MEDS ORDERED: IOHEXOL-300 100 ML VIAL IV ONE (14:25)
[2019-07-20] MEDS ORDERED: IV NS 0.9% 250 ML IV ONE (14:26)
--- NOTE | 2019-07-20 14:39 | NUR ---
CAME BACK FROM CT
--- NOTE | 2019-07-20 15:00 | NUR ---
Patient is resting comfortably in bed with eyes closed. Easily aroused. VSS
--- NOTE | 2019-07-20 15:48 | NUR ---
DR MCCLURE AT BEDSIDE
[2019-07-20] MEDS ORDERED: KETOROLAC TROMETHAMINE 15 MG/ML VIAL ONE (15:52)
[2019-07-20] MEDS ORDERED: CEFTRIAXONE 1GM BAG (ER ONLY) 50 ML IV ONE (15:52)
[2019-07-20] MEDS ORDERED: KETOROLAC TROMETHAMINE INJ 30 MG/ML VIAL IV ONE (16:00)
[2019-07-20] MEDS ORDERED: CEFTRIAXONE 1GM BAG (ER ONLY) 1 GM/50 ML PIGGYBACK IV ONE (16:00)
[2019-07-20 16:21] VITALS: BP 147/86
--- NOTE | 2019-07-20 16:21 | NUR ---
IV removed. Catheter intact and site benign. Pressure and 4x4 applied to site. No bleeding noted.Patient discharged to home in stable condition. Written and verbal after care instructions given. Patient verbalizes understanding of instruction.
== END 2019-07-20 16:21 | disposition home or self-care (01) ==
LOC: ER 11:57
DX: N39.0 Urinary tract infection, site not specified (principal); I10 Essential (primary) hypertension; M06.9 Rheumatoid arthritis, unspecified; Z90.89 Acquired absence of other organs; Z90.710 Acquired absence of both cervix and uterus; Z98.890 Other specified postprocedural states; Z60.2 Problems related to living alone; Z79.899 Other long term (current) drug therapy; Z79.82 Long term (current) use of aspirin
CPT/HCPCS: 36415; 74177; 80048; 80076; 81001; 83605; 83690; 84484; 85025; 87086; 96365; 96375; 99284; J0696; J1885; J7040; J7050; Q9967; 81000-TC

== ENCOUNTER 2020-03-19 11:11 | Inpatient (IN) | payer MEDICARE, OTHER ==
[~2020-03-19] VITALS: Ht 160 cm; Wt 89.8 kg
[~2020-03-19 11:11] MED LIST changes: -ASPI-1152 PO; +ASPI-1420 PO
[2020-03-19] MEDS ORDERED: IV NS 0.9% 500 ML BAG IV ONE (11:30)
[2020-03-19] MEDS ORDERED: OXYB-58 PO (11:37)
[2020-03-19] MEDS ORDERED: NEBI5TAB8 PO (11:37)
[2020-03-19] MEDS ORDERED: PROP10TA68 PO (11:37)
[2020-03-19] MEDS ORDERED: PANT40TA49 PO (11:37)
[2020-03-19] MEDS ORDERED: DICY10CA37 PO (11:37)
[2020-03-19] MEDS ORDERED: ESCI10TA PO (11:37)
[2020-03-19] MEDS ORDERED: GABA-532 PO (11:37)
[2020-03-19] MEDS ORDERED: MELO-107 PO (11:37)
[2020-03-19] MEDS ORDERED: FURO20TA4 PO (11:37)
[2020-03-19] MEDS ORDERED: NITR0.4T48 SL (11:37)
--- NOTE | 2020-03-19 11:54 | NUR ---
BIBS FROM HOME HOME TO ER BED 6. AAOX4. NOT IN RESP DISTRESS. AMBULATORY WITH AN AIDE OF FRONT WHEELED WALKER. CAME IN FOR A LLQ ABDOMINAL PAIN SINCE LAST NIGHT. PT RATES PAIN 8/10 SHARP CONSTANT WITH NAUSEA. PT REPROTS THAT SHE HAVE DIVERLICULITIS MANY YEARS AGO. MD WAS AT THE BEDSIDE FOR EVAL. ORDERS RECEIVED, NOTED AND CARRIED OUT. IV LINE OBTAINED ON R AC 18G. BLOOD DRAW AND GIVEN TO BAND SAW RUNNER AT THE BEDSIDE. PT IS ON MONITOR.
[2020-03-19] MEDS ORDERED: MORPHINE SULFATE INJ 2 MG/ML DISP.SYRIN ONE (12:08)
[2020-03-19] MEDS ORDERED: ONDANSETRON HCL/PF 4 MG/2 ML VIAL ONE ×2 (12:08→13:17)
--- NOTE | 2020-03-19 12:10 | NUR ---
VERBAL ORDER RECEIVED TO GIVE MORPHINE 2MG IV X 1 AND ZOFRAN 4MG IV X 1 FOR PAIN AND NAUSEA.
[2020-03-19 12:13] LABS: BASOPHILS % (AUTO) 0.3 % (0.0-2.0); EOSINOPHILS % (AUTO) 1.4 % (0.0-6.0); HEMATOCRIT 37 % (33-45); HEMOGLOBIN 11.5 g/dL (11.5-14.8); LYMPHOCYTES # (AUTO) 1.7 /CMM (0.8-4.8); LYMPHOCYTES % (AUTO) 17.6 % (20.0-44.0); MEAN CORPUSCULAR HGB CONC 31 g/dl (31.0-36.0); MEAN CORPUSCULAR VOLUME 64 fL (82-100); MONOCYTES # (AUTO) 0.6 /CMM (0.1-1.30); MONOCYTES % (AUTO) 6.8 % (2.0-12.0); NEUTROPHILS % (AUTO) 73.9 % (43.0-81.0); PLATELET COUNT (AUTO) 167 /CMM (150-450); RED BLOOD CELL COUNT(AUTO) 5.79 MIL/uL (4.0-5.2); WHITE BLOOD COUNT (AUTO) 9.5 K/uL (4.3-11.0)
[2020-03-19 12:23] LABS: ALBUMIN 3.9 g/dL (3.4-5.0); BILIRUBIN,DIRECT 0.2 mg/dL (0.0-0.2); BILIRUBIN,TOTAL 0.9 mg/dL (0.2-1.0); CALCIUM, SERUM 9.5 mg/dL (8.5-10.1); CREATININE 0.8 mg/dL (0.6-1.3); POTASSIUM 4.3 mmol/L (3.5-5.1); TOTAL PROTEIN, SERUM 7.5 g/dL (6.4-8.2)
--- NOTE | 2020-03-19 13:09 | NUR ---
CALLED [facility]. MANIFOLD OPERATOR WAS PAGED
--- NOTE | 2020-03-19 13:10 | NUR ---
COVID SWAB DONE AND SENT TO LAB
--- NOTE | 2020-03-19 13:13 | NUR ---
URINE WAS BEING COLLECTED FROM PT WITH AN AIDE OF A COLLECTION HAT BUT PT SPILLED THE URINE. MADE AWARE. OK TO COLLECT URINE ONCE PT IS ABLE TO.
[2020-03-19] MEDS ORDERED: MORPHINE SULFATE INJ 4 MG/ML DISP.SYRIN ONE (13:17)
[2020-03-19] MEDS ORDERED: MORPHINE SULFATE INJ 10 MG/ML DISP.SYRIN IV ONE (13:30)
[2020-03-19] MEDS ORDERED: MORPHINE SULFATE INJ 2 MG/ML DISP.SYRIN IV ONE (13:30)
[2020-03-19] MEDS ORDERED: CEFTRIAXONE 1GM BAG (ER ONLY) 1 GM/50 ML PIGGYBACK IV ONE (13:30)
[2020-03-19] MEDS ORDERED: FLAGYL/NS RTU 500 MG/100 ML PIGGYBACK IV ONE (13:30)
[2020-03-19] MEDS ORDERED: ONDANSETRON HCL/PF - ER 4 MG/2 ML VIAL IV ONE ×2 (13:30)
--- NOTE | 2020-03-19 13:52 | NUR ---
DR. CABAN AT BEDSIDE
--- NOTE | 2020-03-19 13:57 | NUR ---
called nursing sup for bed
[2020-03-19] MEDS ORDERED: MORPHINE SULFATE INJ 2 MG/ML DISP.SYRIN IV PRN (14:00)
[2020-03-19] MEDS ORDERED: MAGNESIUM HYDROXIDE 30 ML UDC PO PRN (14:00)
[2020-03-19] MEDS ORDERED: HYDROCODONE/APAP 5/325MG TABLET PO PRN (14:00)
[2020-03-19] MEDS ORDERED: ONDANSETRON HCL/PF 4 MG/2 ML VIAL IVP PRN (14:00)
[2020-03-19] MEDS ORDERED: ACETAMINOPHEN 325 MG TABLET PO PRN (14:00)
[2020-03-19] MEDS ORDERED: MAG HYDROX/AL HYDROX/SIMETH 30 ML UDC PO PRN (14:00)
[2020-03-19] MEDS ORDERED: Z GUARD REMEDY 2 OZ OINT TP PRN (14:00)
--- NOTE | 2020-03-19 14:33 | NUR ---
REPORT GIVEN TO JERZY PULIDO FOR ERIK
--- NOTE | 2020-03-19 14:50 | NUR ---
PT BEING TRANSPORTED TO UNIT ON [facility] BY EMT. PT IS STABLE FOR TRANSPORT. NAD NOTED
[2020-03-19 15:00] VITALS: BP 113/64
--- NOTE | 2020-03-19 15:00 | NUR ---
MS/RN ADMITTING NOTES Received patient in [facility], transferred to bed safely. Vitals taken. Patient A&O x 4, Farsi speaking, but can understand and speak croatian. Breathing even and non-labored on RA, no SOB noted. No respiratory or cardiac distress noted. Patient complaints of 4/10 abdominal aching pain, morphine 4 mg last given @ 1323 at the ER. IV access located on R AC # 18, patent and intact, and flushing well. Sensation from all peripheral extremities intact. Swelling (non-pitting edema) noted on BLE. Abdominal scar noted. Photos taken and placed on chart. Patient is ambulatory with walker, instructed patient to use call light when in need of assistance. Fall precautions maintained, bed locked to its lowest position, side rails x2 up, bed alarm on. Will continue with current medical management.
--- NOTE | 2020-03-19 15:05 | NUR ---
CORRECTION FROM ADMITTING NOTES: DID NOT TAKE PICS, PER CHARGE NURSE, NO NEED TO TAKE PHOTOS.
[2020-03-19] MEDS: ENOXAPARIN SODIUM 40 MG/0.4 ML DISP.SYRIN SQ SCH (16:30)
--- NOTE | 2020-03-19 18:30 | NUR ---
MS/RN NOTES Gave report to JERZY Naryaanan and transferred patient safely at unit.
--- NOTE | 2020-03-19 18:30 | NUR ---
MS RN NOTES RECEIVED PATIENT FROM [facility]. PATIENT SITUATED IN BED. IN STABLE CONDITION. PATIENT ALERT, ORIENTED X3. CALL LIGHT WITHIN REACH. BED IN LOW LOCKED POSITION. WILL CONTINUE TO MONITOR.
[2020-03-19] MEDS: IV NS 0.9% 1,000 ML IV PRN (18:35)
--- NOTE | 2020-03-19 19:09 | NUR ---
MS RN NOTES PATIENT IN BED SLEEPING. ENDORSED CARE TO PM SHIFT.
--- NOTE | 2020-03-19 19:10 | NUR ---
MS/RN OPENING NOTES: RECEIVED PT AWAKE AND ALERT X4, COMFORTABLY RESTING IN BED. NO SOB NOTED. BREATHING EVEN AND UNLABORED, NO S/S OF DISTRESS. NO COMPLAINS OF PAIN AT THIS TIME. SKIN INTACT, BLE EDEMA NON PITTING. BRP ASSIST. ROSA TO AMBULATE WITH ASSISTANCE, ORIENTED TO PRESS THE CALL LIGHT WHENEVER SHE NEEDS HELP GETTING TO THE RESTROOM. ON CLEAR LIQUIDS. IV ON THE RIGHT AC #18G WITH NS RUNNING AT 75MLS/HR. SAFETY MEASURES IMPLEMENTED. BED IN LOW, LOCKED POSITION WITH SR UPX2. CALL LIGHT WITHIN EASY REACH. WILL CONTINUE TO MONITOR ACCORDINGLY.
[2020-03-19 20:00] VITALS: BP_SYST 137; BP_DIAS 82; BP_DIAS 87
--- NOTE | 2020-03-19 20:00 | NUR ---
spoke with daughter Leesa [phone], patient is alert and pleasant,lives locally alone. She has a caregiver/[facility] provider [id number] per day. Patient ambulates with a walker and limited help needed with adl's. Has good family support. She plan to return home, family will provide ride. Addendum: 03/19/20 at 1999 by NABIL HITCHCOCK RN Amended: Links added.
[2020-03-19] MEDS: METOPROLOL TARTRATE 25 MG TABLET PO SCH (21:08)
[2020-03-19] MEDS: OXYBUTYNIN CHLORIDE ER 5 MG TAB PO SCH (21:08)
[2020-03-20] MEDS: IV NS 0.9% 1,000 ML IV PRN (05:40)
--- NOTE | 2020-03-20 06:32 | NUR ---
MS/RN CLOSING NOTES: PT REMAINS A/O X4, COMFORTABLY RESTING IN BED. NO SOB NOTED. BREATHING EVEN AND UNLABORED, NO S/S OF DISTRESS. NO COMPLAINS OF PAIN AT THIS TIME. NO SIGNIFICANT CHANGES IN CONDITION. SKIN INTACT, BLE EDEMA NON PITTING PRESENT. ALL DUE MEDS GIVEN ORDERED. ALL NURSING NEEDS MET AND RENDERED. IV ON THE RIGHT AC #18G WITH NS RUNNING AT 75MLS/HR. SAFETY MEASURES IMPLEMENTED. BED IN LOW, LOCKED POSITION WITH SR UPX2. CALL LIGHT WITHIN EASY REACH. WILL ENDORSE TO DAY SHIFT RN FOR ERIK.
--- NOTE | 2020-03-20 07:15 | NUR ---
RN OPENING NOTES RECEIVED PATIENT IN BED RESTING. NOT IN ANY FORM OF DISTRESS. NO SOB. DENIED PAIN OR DISCOMFORT AT THIS TIME. SAFETY PRECAUTIONS IMPLEMENTED. BED IN LOW/LOCKED POSITION.SIDERAILS UPX2,CALL LIGHT IN REACH. WILL CONT TO MONITOR ACCORDINGLY.
[2020-03-20 07:29] LABS: BASOPHILS % (AUTO) 0.2 % (0.0-2.0); HEMATOCRIT 34 % (33-45); HEMOGLOBIN 10.7 g/dL (11.5-14.8); LYMPHOCYTES # (AUTO) 1.9 /CMM (0.8-4.8); LYMPHOCYTES % (AUTO) 25.1 % (20.0-44.0); MEAN CORPUSCULAR HGB CONC 31 g/dl (31.0-36.0); MEAN CORPUSCULAR VOLUME 63 fL (82-100); MONOCYTES # (AUTO) 0.5 /CMM (0.1-1.30); MONOCYTES % (AUTO) 7.2 % (2.0-12.0); NEUTROPHILS # (AUTO) 4.9 /CMM (1.8-8.9); NEUTROPHILS % (AUTO) 65.5 % (43.0-81.0); PLATELET COUNT (AUTO) 154 /CMM (150-450); RED BLOOD CELL COUNT(AUTO) 5.35 MIL/uL (4.0-5.2); WHITE BLOOD COUNT (AUTO) 7.5 K/uL (4.3-11.0)
[2020-03-20 07:50] LABS: CALCIUM, SERUM 8.7 mg/dL (8.5-10.1); CREATININE 0.9 mg/dL (0.6-1.3); MAGNESIUM 2.2 mg/dL (1.8-2.4); PHOSPHORUS 3.6 mg/dL (2.5-4.9); POTASSIUM 4.2 mmol/L (3.5-5.1)
[2020-03-20 08:00] VITALS: BP 129/80
[2020-03-20] MEDS: PROPRANOLOL HCL 10 MG TABLET PO SCH (08:57)
[2020-03-20] MEDS: AMLODIPINE BESYLATE 5 MG TABLET PO SCH (08:57)
[2020-03-20] MEDS: METOPROLOL TARTRATE 25 MG TABLET PO SCH ×2 (08:58→21:00)
[2020-03-20] MEDS: PANTOPRAZOLE 40 MG TABLET.DR PO SCH (08:59)
[2020-03-20] MEDS: ENOXAPARIN SODIUM 40 MG/0.4 ML DISP.SYRIN SQ SCH (09:00)
[2020-03-20 16:47] VITALS: BP 138/71
--- NOTE | 2020-03-20 18:30 | NUR ---
RN CLOSING NOTES PATIENT IN STABLE CONDITION. ALL NEEDS ATTENDED AND PROVIDED. ALL DUE MEDS GIVEN ORDERED. KEPT PATIENT SAFE AND COMFORTABLE. BED IN LOW/LOCKED POSITION. SIDERAILS UPX2,CALL LIGHT IN REACH. WILL CONTINUE TO MONITOR ACCORDINGLY. Addendum: 03/20/20 at 1833 by ELIZABETH LEY WILL ENDORSE ACCORDINGLY
--- NOTE | 2020-03-20 19:05 | NUR ---
MS/RN OPENING NOTES: RECEIVED PT AWAKE AND ALERT X4, COMFORTABLY RESTING IN BED. NO SOB NOTED. BREATHING EVEN AND UNLABORED, NO S/S OF DISTRESS. NO COMPLAINS OF PAIN AT THIS TIME. SKIN INTACT, BLE EDEMA NON PITTING. AMBULATORY AND USES THE WALKER. ORIENTED TO PRESS THE CALL LIGHT WHENEVER SHE NEEDS HELP GETTING TO THE RESTROOM. IV ON THE RIGHT AC #18G SL. SAFETY MEASURES ARE IN PLACE. BED IN LOW, LOCKED POSITION WITH SR UPX2. CALL LIGHT WITHIN EASY REACH. WILL CONTINUE TO MONITOR ACCORDINGLY.
[2020-03-20 20:00] VITALS: BP 115/57
--- NOTE | 2020-03-20 20:35 | NUR ---
MS/RN NOTES: PT COMPLAINED PAIN ON HER IV SITE ON THE RIGHT AC #18G. REQUESTING TO TAKE OUT IV LINE. EXPLAINED TO PT THAT SHE NEEDS TO HAVE LINE IN CASE OF EMERGENCY. EXPLAINED THE RISKS AND BENEFITS, PT STILL REFUSED. WILL CONTINUE TO MONITOR AND IV SITE TAKEN OUT.
[2020-03-20] MEDS: OXYBUTYNIN CHLORIDE ER 5 MG TAB PO SCH (21:24)
[2020-03-20 22:30] VITALS: BP 110/62
[2020-03-20] MEDS ORDERED: ZOLPIDEM TARTRATE 5 MG TABLET PO PRN (23:00)
--- NOTE | 2020-03-21 07:15 | NUR ---
MS/RN CLOSING NOTES: PT REMAINS A/O X4, COMFORTABLY RESTING IN BED. NO SOB NOTED. BREATHING EVEN AND UNLABORED, NO S/S OF DISTRESS. NO COMPLAINS OF PAIN AT THIS TIME. NO SIGNIFICANT CHANGES IN CONDITION. SKIN INTACT, BLE EDEMA NON PITTING PRESENT. ALL DUE MEDS GIVEN ORDERED. ALL NURSING NEEDS MET AND RENDERED. REFUSES IV. SAFETY MEASURES IMPLEMENTED. BED IN LOW, LOCKED POSITION WITH SR UPX2. CALL LIGHT WITHIN EASY REACH. WILL ENDORSE TO DAY SHIFT RN FOR ERIK.
[2020-03-21] MEDS: PANTOPRAZOLE 40 MG TABLET.DR PO SCH (07:41)
--- NOTE | 2020-03-21 07:45 | NUR ---
MS/RN - Assessment Patient is awake, A/O x 4, states feeling better, denies abdominal pain, no c/o n/v, tolerating soft diet well, afebrile, stable on room air. Patient refused peripheral IV insertion, stated "I'm going home today.", will notify MD of refusal. No labs ordered for today. Fall and aspiration precautions maintained. Patient educated on plan of care. Will continue with current medical management.
[2020-03-21 08:00] VITALS: BP 142/75
[2020-03-21] MEDS: AMLODIPINE BESYLATE 5 MG TABLET PO SCH (08:02)
[2020-03-21] MEDS: ENOXAPARIN SODIUM 40 MG/0.4 ML DISP.SYRIN SQ SCH (08:04)
[2020-03-21] MEDS: PROPRANOLOL HCL 10 MG TABLET PO SCH (08:04)
[2020-03-21] MEDS: METOPROLOL TARTRATE 25 MG TABLET PO SCH (08:05)
[2020-03-21] MEDS ORDERED: LEVO500T23 PO (09:30)
--- NOTE | 2020-03-21 12:30 | NUR ---
MS/RN - Notes Per daughter Leesa, pt doesn't use [facility] anymore and prefers [facility] located at [place]. Called prescription to [facility].
[2020-03-21 16:00] VITALS: BP 128/76
--- NOTE | 2020-03-21 17:35 | NUR ---
MS/RN - Discharge Patient is alert and oriented X 4, discharged home in stable condition, remain afebrile, tolerated diet well, denies abdominal pain, not in any form of distress, stable on room air, ambulatory with FWW. Reviewed discharge instructions with patient and she verbalized full understanding of all teachings including medications and follow-up care with PCP as scheduled. Patient was advised to seek immediate medical attention for worsening symptoms, chest pain, shortness of breath, palpitations, abdominal pain/distention, intractable nausea and vomiting, diarrhea, weakness, loss of consciousness, neurological deficit, or any other emergent concerns. All personal property returned to patient and she deny any missing items. Patient refused photos to be taken of skin, no breakdown. Discharge paperwork signed and copies were given per protocol. Daughter Leesa aware of discharge and in agreement. Patient left the unit at 17:20 via [facility] transportation.
== END 2020-03-21 17:35 | disposition home or self-care (01) | DRG 391 ==
LOC: ER 11:22 → MED 14:12 → MEDSG2 18:20
PROVIDERS: ADMIT Internal Medicine; ATTEND Internal Medicine
DX: K57.20 Diverticulitis of large intestine with perforation and abscess without bleeding (principal); K65.9 Peritonitis, unspecified; E87.1 Hypo-osmolality and hyponatremia; E86.1 Hypovolemia; F32.9 Major depressive disorder, single episode, unspecified; K21.9 Gastro-esophageal reflux disease without esophagitis; K64.9 Unspecified hemorrhoids; G89.29 Other chronic pain; D64.9 Anemia, unspecified; I10 Essential (primary) hypertension; Z90.710 Acquired absence of both cervix and uterus
CPT/HCPCS: 36415; 71045-TC; 80048-TC; 80076-TC; 83605-TC; 83690-TC; 83735-TC; 84100-TC; 85025-TC; 87040-TC; 87081-TC; C9803-CS; G0378; J0696; J1650; J2270; J2405; J7030; J7040; J7050

== ENCOUNTER 2020-04-11 09:04 | Emergency (ER) | payer MEDICARE, OTHER ==
[~2020-04-11] VITALS: Ht 160 cm; Wt 81.6 kg
[~2020-04-11 09:04] MED LIST changes: -ALBU8.5H8 INH; -ASPI-1420 PO; +FURO20TA4 PO; +LEVO500T23 PO; +NEBI5TAB8 PO; +OXYB-58 PO; +PANT40TA4 PO; +PROP10TA68 PO; -ZOLP5TAB2 PO
[2020-04-11] MEDS ORDERED: IV NS 0.9% 1,000 ML BAG IV ONE (09:30)
[2020-04-11] MEDS ORDERED: ONDANSETRON HCL/PF 4 MG/2 ML VIAL IVP ONE (09:30)
[2020-04-11] MEDS ORDERED: MORPHINE SULFATE INJ 2 MG/ML DISP.SYRIN IV ONE (09:30)
--- NOTE | 2020-04-11 09:30 | NUR ---
c/o diffuse abdominal pain that started last night. Patient a/ox4, breathing even and unlabored, no sob noted, needs attended. Kept comfortable, changed into gown, assisted to restroom.
[2020-04-11] MEDS ORDERED: ONDANSETRON HCL/PF 4 MG/2 ML VIAL ONE (09:38)
[2020-04-11] MEDS ORDERED: MORPHINE SULFATE INJ 4 MG/ML DISP.SYRIN ONE (09:38)
--- NOTE | 2020-04-11 09:40 | NUR ---
Dr. Méndez at bedside for eval.
[2020-04-11 09:43] LABS: HEMOGLOBIN 11.8 g/dL (11.5-14.8); RED BLOOD CELL COUNT(AUTO) 5.79 MIL/uL (4.0-5.2)
--- NOTE | 2020-04-11 09:45 | NUR ---
DIRECTOR ON AIR AT BEDSIDE FOR XRAY.
[2020-04-11 09:46] LABS: BASOPHILS % (AUTO) 0.5 % (0.0-2.0); EOSINOPHILS % (AUTO) 2.1 % (0.0-6.0); HEMATOCRIT 37 % (33-45); LYMPHOCYTES # (AUTO) 1.5 /CMM (0.8-4.8); LYMPHOCYTES % (AUTO) 31.9 % (20.0-44.0); MEAN CORPUSCULAR HGB CONC 32 g/dl (31.0-36.0); MEAN CORPUSCULAR VOLUME 64 fL (82-100); MONOCYTES # (AUTO) 0.4 /CMM (0.1-1.30); MONOCYTES % (AUTO) 7.7 % (2.0-12.0); NEUTROPHILS # (AUTO) 2.8 /CMM (1.8-8.9); NEUTROPHILS % (AUTO) 57.8 % (43.0-81.0); PLATELET COUNT (AUTO) 160 /CMM (150-450); WHITE BLOOD COUNT (AUTO) 4.8 K/uL (4.3-11.0)
[2020-04-11 09:51] LABS: APPEARANCE,URINE Clear (CLEAR); BILIRUBIN,URINE Negative (NEGATIVE); BLOOD, URINE Trace-intact Ery/uL (NEGATIVE); COLOR,URINE Yellow (YELLOW); KETONES,URINE Negative (NEGATIVE); LEUKOCYTE ESTERASE ,URINE Trace (NEGATIVE); NITRITE, URINE Negative (NEGATIVE); PROTEIN,URINE 30 mg/dl (NEGATIVE); UGLUCOSE Negative (NEGATIVE); UROBILINOGEN,URINE 0.2 EU/dL (0.2)
[2020-04-11 09:55] LABS: WBC,URINE 0-2 /HPF (0-3)
[2020-04-11 09:56] LABS: BACTERIA,URINE Few /HPF (None Seen); SQUAMOUS EPITHELIAL CELL,UR Few /HPF (None Seen)
[2020-04-11 09:57] LABS: CALCIUM, SERUM 9.1 mg/dL (8.5-10.1); CREATININE 0.8 mg/dL (0.6-1.3); POTASSIUM 4.1 mmol/L (3.5-5.1)
[2020-04-11 10:03] LABS: ALBUMIN 4.2 g/dL (3.4-5.0); BILIRUBIN,DIRECT 0.2 mg/dL (0.0-0.2); BILIRUBIN,TOTAL 0.7 mg/dL (0.2-1.0); TOTAL PROTEIN, SERUM 7.8 g/dL (6.4-8.2)
[2020-04-11 10:56] LABS: EOSINOPHILS % (MANUAL) 1 % (0-4); LYMPHOCYTES % (MANUAL) 26 % (16-48); MONOCYTES % (MANUAL) 5 % (0-11.0); NEUTROPHILS % (MANUAL) 68 (42-76)
--- NOTE | 2020-04-11 11:46 | NUR ---
INFORMED DAUGHTER PATIENT IS READY FOR DISCHARGE, WILL SEND THE PATIENT'S GRANDSON FOR DISCHARGE. VITALS STABLE.
--- NOTE | 2020-04-11 11:48 | NUR ---
PATIENT A/OX4, AMBULATORY WITH STEADY GAIT, PAIN HAS IMPROVED. NEEDS ATTENDED. IV removed. Catheter intact and site benign. Pressure and 4x4 applied to site. No bleeding noted.
[2020-04-11 12:05] VITALS: BP 160/91
== END 2020-04-11 12:05 | disposition home or self-care (01) ==
LOC: ER 09:09
DX: K59.00 Constipation, unspecified (principal); I10 Essential (primary) hypertension; Z90.89 Acquired absence of other organs; Z90.710 Acquired absence of both cervix and uterus; Z98.890 Other specified postprocedural states; Z60.2 Problems related to living alone; Z79.899 Other long term (current) drug therapy
CPT/HCPCS: 36415; 71045; 74176; 80048; 80076; 81001; 83690; 85025; 93005; 96361; 96374; 96375; 99285; J2270; J2405; J7030; 81000-TC

== ENCOUNTER 2020-05-09 11:55 | Emergency (ER) | payer MEDICARE, OTHER ==
[~2020-05-09] VITALS: Ht 157.5 cm; Wt 81.6 kg
[~2020-05-09 11:55] MED LIST changes: -PANT40TA4 PO; +PANT40TA49 PO
[2020-05-09 12:05] VITALS: BP 151/86
--- NOTE | 2020-05-09 12:53 | NUR ---
PT MADE NURSING STATION THAT SHE IS FEELING BETTER. LEFT ED.
--- NOTE | 2020-05-09 12:55 | NUR ---
LEFT WITHOUT BEING SEEN BY ED PROVIDER.
== END 2020-05-09 12:56 | disposition left against medical advice (07) ==
LOC: ER 12:03
DX: Z53.21 Procedure and treatment not carried out due to patient leaving prior to being seen by health care provider (principal); R10.30 Lower abdominal pain, unspecified; R19.7 Diarrhea, unspecified; I10 Essential (primary) hypertension; Z90.89 Acquired absence of other organs; Z98.890 Other specified postprocedural states